=== PATIENT | female | born 1980 | race Asian ===

== ENCOUNTER 2016-08-07 19:56 | Emergency (ER) | payer OTHER, MEDICAID ==
[~2016-08-07] VITALS: Ht 162.6 cm; Wt 88.8 kg
[2016-08-07 21:55] VITALS: BP 108/67
== END 2016-08-07 21:59 | disposition home or self-care (01) ==
LOC: ED 21:35
DX: M54.12 Radiculopathy, cervical region (principal); G24.3 Spasmodic torticollis; S16.1XXA Strain of muscle, fascia and tendon at neck level, initial encounter; X58.XXXA Exposure to other specified factors, initial encounter; Y93.89 Activity, other specified; Y92.89 Other specified places as the place of occurrence of the external cause; Y99.8 Other external cause status
CPT/HCPCS: 72050; 99284; J7512

== ENCOUNTER 2016-08-11 18:46 | Emergency (ER) | payer OTHER, MEDICAID ==
[~2016-08-11] VITALS: Ht 162.6 cm; Wt 89.8 kg
[2016-08-11 18:48] VITALS: BP 131/70
== END 2016-08-11 19:43 | disposition home or self-care (01) ==
LOC: ED 19:00
DX: Z76.0 Encounter for issue of repeat prescription (principal); J45.909 Unspecified asthma, uncomplicated
CPT/HCPCS: 99283

== ENCOUNTER 2016-10-22 21:59 | Emergency (ER) | payer OTHER, MEDICAID ==
[~2016-10-22] VITALS: Ht 162.6 cm; Wt 90.1 kg
[2016-10-22 22:05] VITALS: BP 119/59
== END 2016-10-22 22:47 | disposition home or self-care (01) ==
LOC: ED 22:46
DX: Z76.0 Encounter for issue of repeat prescription (principal); J45.909 Unspecified asthma, uncomplicated
CPT/HCPCS: 99283

== ENCOUNTER 2017-01-23 21:39 | Emergency (ER) | payer MEDICAID, OTHER ==
[~2017-01-23] VITALS: Ht 160 cm; Wt 93.8 kg
[2017-01-23 21:45] VITALS: BP 118/76
== END 2017-01-23 22:18 | disposition home or self-care (01) ==
LOC: ED 22:06
DX: Z76.0 Encounter for issue of repeat prescription (principal); J45.909 Unspecified asthma, uncomplicated
CPT/HCPCS: 99283

== ENCOUNTER 2017-05-09 21:46 | Emergency (ER) | payer OTHER, MEDICAID ==
[~2017-05-09] VITALS: Ht 162.6 cm; Wt 96.5 kg
[2017-05-09 21:47] VITALS: BP 144/83
== END 2017-05-09 22:52 | disposition home or self-care (01) ==
LOC: ED 22:46
DX: K04.7 Periapical abscess without sinus (principal); K02.9 Dental caries, unspecified; J45.909 Unspecified asthma, uncomplicated; M54.12 Radiculopathy, cervical region
CPT/HCPCS: 99283

== ENCOUNTER 2017-07-05 11:01 | Emergency (ER) | payer OTHER, MEDICAID ==
[~2017-07-05] VITALS: Ht 152.4 cm; Wt 97.4 kg
[2017-07-05] MEDS ORDERED: methylPREDNISolone SOD SUCC 125 MG/2 ML ONE (11:29)
[2017-07-05] MEDS ORDERED: SODIUM CHLORIDE 0.9% 1,000ML IVBOLUS ONE (11:30)
[2017-07-05] MEDS ORDERED: methylPREDNISolone SOD SUCC 125 MG/2 ML IVP ONE (11:30)
[2017-07-05] MEDS ORDERED: MAGNESIUM SULFATE PMX 2GM/50ML 50 ML IV ONE (11:30)
[2017-07-05] MEDS ORDERED: SODIUM CHLORIDE FLUSH 10ML SYR IVF ONE (11:30)
[2017-07-05] MEDS ORDERED: ALBUTEROL 0.5%, 20ML NPPBCONT PRN (11:30)
[2017-07-05] MEDS ORDERED: ALBUTEROL 0.5%, 20ML ONE (11:31)
[2017-07-05] MEDS: ALBUTEROL SULFATE 2.5 MG/3 ML NPPB ONE (11:35)
[2017-07-05 12:56] VITALS: BP 123/77
== END 2017-07-05 13:12 | disposition home or self-care (01) ==
LOC: ED 12:50
DX: J45.41 Moderate persistent asthma with (acute) exacerbation (principal); J45.42 Moderate persistent asthma with status asthmaticus
CPT/HCPCS: 71045; 93005; 94644; 96361; 96374; 99285; J2930; J7030; J7613